=== PATIENT | female | born 1960 | race Caucasian/White ===

== ENCOUNTER → 2019-05-02 14:41 | Outpatient (CLI) | payer OTHER, SELFPAY ==
--- NOTE | 2019-05-02 | DI.MRI.S_ITS ---
PROCEDURE: MR CERVICAL SPINE WO CON INDICATIONS: Spondylosis without myelopathy or radiculopathy TECHNIQUE: Noncontrast sagittal T1 spin echo and T2 fast spin echo, sagittal STIR, foraminal oblique sagittal T2 fast spin echo, and axial gradient echo or T2 fast spin echo through the cervical spine. COMPARISON: [facility] [place], CR, XR CERVICAL SPINE 6+ VIEWS, 05/13/2018, 8:55. FINDINGS: Image quality: Excellent. Alignment and Curvature: There is trace C5-C6 retrolisthesis. There is mild C7-T1 anterolisthesis. There is mild reversal of normal cervical spine curvature from C3-C5. Bone Marrow: Minimal reactive endplate changes adjacent to C4-C5 and C5-C6 discs. Spinal Cord: Visualized spinal cord has normal size and signal. No cerebellar tonsillar herniation. Paraspinous Soft Tissues: No paravertebral masses. Prevertebral soft tissues are normal in thickness. C2-C3: Loss of disc signal. No central stenosis. No neural foraminal narrowing. No neural compression. C3-C4: Loss of disc signal. Mild, diffuse disc bulge. Mild left facet hypertrophy. Mild left uncovertebral joint hypertrophy. Mild narrowing of the central canal. Severe left neural foraminal narrowing with compression of the exiting left C4 nerve root. Right neural foramen is widely patent. C4-C5: Loss of disc signal and slight loss of disc height. Mild diffuse disc bulge. Mild left facet hypertrophy. Mild left uncovertebral joint hypertrophy. Moderate narrowing of the central canal. Mild right and severe left neural foraminal narrowing with compression of the exiting left C5 nerve root. C5-C6: Loss of disc signal and height. Moderate, diffuse disc bulge. Mild bilateral facet hypertrophy. Moderate bilateral uncovertebral joint hypertrophy. Severe narrowing of the central canal with slight compression of the cervical spinal cord. Severe bilateral neural foraminal narrowing with compression of the exiting bilateral C6 nerve roots. C6-C7: Normal appearance. C7-T1: Normal appearance. IMPRESSION: 1. Multilevel degenerative disc disease. 2. Multilevel facet and uncovertebral arthropathy. 3. Severe C5-C6 central canal narrowing. Moderate C4-C5 central canal narrowing. Mild C3-C4 central canal narrowing. 4. Severe bilateral C5-C6 neural foraminal narrowing. Mild right and severe left C4-C5 neural foraminal narrowing. Severe left C3-C4 neural foraminal narrowing. Dictated by: Kaley Dietrich MD, PhD on 05/02/2019 at 16:54 Approved by: Kaley Dietrich MD, PhD on 05/02/2019 at 17:04
== END ==
PROVIDERS: Family Provider Family Medicine; PCP Family Medicine; Visit Provider Internal Medicine
DX: M47.812 Spondylosis without myelopathy or radiculopathy, cervical region (principal); M50.31 Other cervical disc degeneration, high cervical region; M48.02 Spinal stenosis, cervical region
CPT/HCPCS: 72141

== ENCOUNTER → 2020-06-02 09:16 | Outpatient (CLI) | payer OTHER, SELFPAY ==
--- NOTE | 2020-06-02 | DI.ECHO.S_ITS ---
[place] [facility]---------+ [facility] +---------+ : : [address] : : : : [id number] : : : : Phone: [phone]+ Echocardiogram Report + + :Name: FAUSTINO WHIPPLE Study Date: 06/02/2020 Height: 69 in : :[facility] Weight: 166 lb : : Gender: Female BSA: 1.9 m2 : :: 1960 Age: 60 yrs BP: 137/78 mmHg: :Reason For Study: ENCOUNTER FOR GENERAL ADULT MEDICAL : :EXAMINATION : :Ordering Physician: MARTIN, : :LAURI Performed By: Amanda Carrasco : :Referring: LAURI SALAZAR : + + Interpretation Summary Left ventricular systolic function is normal with an estimated ejection fraction of 60 to 65% without any focal wall motion abnormality. Left ventricular size is normal with borderline concentric LVH. Diastolic function is likely normal with probable normal filling pressures. The right ventricle appears normal. Right ventricular systolic pressure cannot be estimated but CVP is likely around 3 mmHg. Both atria are borderline enlarged. The aortic valve appears anatomically normal with mild central aortic regurgitation. There is no other significant valvular abnormality. The ascending aorta is mildly enlarged. Procedure: A two-dimensional transthoracic echocardiogram with color flow and Doppler was performed. The study quality was technically adequate. There is no prior echocardiogram noted for this patient. The patient was in sinus rhythm with heart rates between 65-70 bpm during the exam. Left Ventricle: The left ventricle is normal in size. There is borderline concentric left ventricular hypertrophy. Left ventricular systolic function appears normal without focal wall motion abnormalities. The ejection fraction is estimated to be 60-65%. Diastolic parameters suggest probable normal left ventricular diastolic function and normal filling pressures. Right Ventricle: The right ventricle is normal in size and function. Atria: There is borderline biatrial enlargement. There is no Doppler evidence for an interatrial shunt. Mitral Valve: The mitral valve is normal in structure and function. There is trace mitral regurgitation. Aortic Valve: The aortic valve is trileaflet. The aortic valve opens well. There is no aortic valve stenosis. There is mild aortic regurgitation. Tricuspid Valve: The tricuspid valve is normal in structure and function. There is trace tricuspid regurgitation. Pulmonary artery pressures cannot be estimated because of the lack of a measurable TR jet velocity but the IVC suggests a CVP of around 3 mmHg. Pulmonic Valve: The pulmonic valve is not well visualized. There is no pulmonic valvular regurgitation. There is no other significant valvular heart disease. Great Vessels: The aortic root is normal size. The ascending aorta is mildly enlarged. The IVC is of normal diameter and collapses greater than 50% with a sniff. This suggests a low right atrial pressure of 3 mm Hg. Pericardium/ Pleura There is no pericardial effusion. There is no pleural effusion. MMode/2D Measurements & Calculations LVIDd: 4.3 cm LVOT diam: 2.4 cm LVIDs: 2.6 cm Ao root diam: 3.4 cm FS: 38.5 % asc Aorta Diam: 3.7 cm EPSS: 0.35 cm Ao Arch Diam (Prox Trans): 2.9 cm IVSd: 1.0 cm LVPWd: 1.1 cm LV cisneros. diameter/BSA (cm/m^2): 2.2 LV sys. diameter/BSA (cm/m^2): 1.4 LA A2 area: 24.6 cm2 RA long axis: 5.6 cm LA A4 area: 16.7 cm2 RA area: 18.8 cm2 LA length (vol): 5.4 cm RA vol: 53.5 ml LA vol: 65.2 ml RA : 28.1 ml/m2 LA vol index: 34.2 ml/m2 IVC diam: 1.1 cm RVD1 (basal): 3.5 cm TAPSE: 2.7 cm Doppler Measurements & Calculations Ao V2 max: 139.7 cm/sec LVOT Max Ethan: 98.9 cm/sec Ao V2 mean: 87.0 cm/sec LV V1 max P.9 mmHg Ao max P.8 mmHg LV V1 VTI: 20.2 cm Ao mean P.5 mmHg DUONG(I,D): 3.7 cm2 Ao V2 VTI: 24.2 cm DUONG(V,D): 3.1 cm2 sev ratio: 0.83 DUONG indexed to BSA (cm^2/m^2): 1.9 AI P1/2t: 919.9 msec AI dec slope: 134.5 cm/sec2 MV E max ethan: 59.7 cm/sec PA V2 max: 73.9 cm/sec MV A max ethan: 61.5 cm/sec PA V2 mean: 46.6 cm/sec MV E/A: 0.97 PA mean P.0 mmHg Med Peak E' Ethan: 7.4 cm/sec PA pr(Accel): 22.5 mmHg E/E' med: 8.1 Lat Peak E' Ethan: 8.5 cm/sec E/E' lat: 7.0 E/e' average: 7.5 MV dec time: 0.28 sec SV(THELMA): 89.1 ml Reading Physician:01:31 PM
== END ==
PROVIDERS: Family Provider Family Medicine; PCP Family Medicine; Referring Provider Family Medicine; Visit Provider Orthopaedic Surgery
DX: I35.1 Nonrheumatic aortic (valve) insufficiency (principal); I77.89 Other specified disorders of arteries and arterioles
CPT/HCPCS: 93306

== ENCOUNTER → 2020-09-15 11:41 | Outpatient (CLI) | payer OTHER, SELFPAY ==
--- NOTE | 2020-09-15 | DI.RAD.S_ITS ---
PROCEDURE: XR KUB INDICATIONS: LLQ PAIN TECHNIQUE: One view of the abdomen acquired. COMPARISON: Merged With [facility], , PELVIC COMPLETE, 09/15/2020, 10:54. FINDINGS: Surgical changes and devices: A probable pessary projects in the lower pelvis. Recommend clinical confirmation. Spinal fixation hardware. Bowel: Bowel gas pattern is normal. There is diffuse moderate to large amount of stool Soft tissues: No suspicious abdominal calcifications. Visualized solid organ contours appear normal in size. Bones: No suspicious bony lesions. IMPRESSION: No specific evidence of bowel obstruction seen at this time although if the patient's symptoms do not improve, continued surveillance with abdominal series radiographs could be performed. Moderate to large amount of stool. Dictated by: Raul Hardin M.D. on 09/15/2020 at 13:55 Approved by: Raul Hardin M.D. on 09/15/2020 at 13:58
--- NOTE | 2020-09-15 11:44 | DI.US.S_ITS ---
PROCEDURE: US PELVIC COMPLETE INDICATIONS: Left lower quadrant pain TECHNIQUE: Real-time scanning was performed of the pelvic organs, with image documentation. Additional endovaginal scanning was necessary due to incomplete visualization of the adnexal and endometrial structures by transabdominal scanning. COMPARISON: None. FINDINGS: Uterus: Uterus is normal in size at 6.5 x 2.7 x 4.3 cm. The endometrium measures 3-4 mm in combined thickness. There is right anterior intramural fibroid measuring 0.8 x 0.8 x 0.8 cm. Ovaries: Right ovary measures 2.7 x 1.2 x 1.3 cm. Left ovary measures 2.4 x 1.4 x 1.7 cm. Doppler interrogation demonstrates no specific evidence of ovarian torsion at this time. Other: No pathologic free abdominal or pelvic fluid. IMPRESSION: Small uterine fibroid Otherwise, unremarkable examination as above Dictated by: Raul Hardin M.D. on 09/15/2020 at 14:35 Approved by: Raul Hardin M.D. on 09/15/2020 at 14:37
== END ==
PROVIDERS: Family Provider Family Medicine; PCP Family Medicine; Visit Provider Orthopaedic Surgery
DX: R10.32 Left lower quadrant pain (principal); D25.9 Leiomyoma of uterus, unspecified
CPT/HCPCS: 74018; 76830; 76856

== ENCOUNTER → 2021-01-20 11:23 | Outpatient (CLI) | payer OTHER, SELFPAY ==
--- NOTE | 2021-01-20 | DI.MRI.S_ITS ---
PROCEDURE: MR LUMBAR SPINE WO CON INDICATIONS: Other intervertebral disc degeneration, lumbar reg TECHNIQUE: Noncontrast sagittal T1 spin echo and T2 fast echo, sagittal STIR, axial T1 and T2 fast spin echo through the lumbar spine. In cases with scoliosis, additional coronal T2 fast spin echo may be performed. COMPARISON: None. FINDINGS: Image quality: Excellent. Alignment and Curvature: There is mild L4-L5 anterolisthesis secondary to facet hypertrophy. Bones: Postsurgical changes compatible with L5-S1 TLIF. Mild reactive endplate changes noted adjacent to the L5-S1 disc space. No acute vertebral body compression fractures. Spinal Cord: Conus medullaris terminates at the L1 level. Visualized cord demonstrates normal signal and size. Paraspinous Soft Tissues: No paravertebral masses. 1.7 centimeter left renal cyst. T12-L1: Normal appearance. L1-L2: Normal appearance. L2-L3: Slight loss of disc signal. Minimal, diffuse disc bulge. No central stenosis. No neural foraminal narrowing. No neural compression. L3-L4: Loss of disc signal. Mild, diffuse disc bulge. Moderate to severe bilateral facet hypertrophy. Mild to moderate narrowing of the central canal. Mild to moderate bilateral neural foraminal narrowing. No neural compression. L4-L5: Loss of disc signal. Mild, diffuse disc bulge. Moderate to severe bilateral facet hypertrophy. Mild to moderate narrowing of the central canal. [id number] right and mild left neural foraminal narrowing. No neural compression. Fissure noted in the anterior annulus. L5-S1: Status post fusion. Mild bilateral facet hypertrophy. No central stenosis. Mild left neural foraminal narrowing. No neural compression. IMPRESSION: 1. Status post L5-S1 fusion. 2. Multilevel degenerative disease. 3. Multilevel facet arthropathy. 4. No severe central canal narrowing. 5. No severe neural foraminal narrowing. 6. No neural compression. 7. Grade 1 L4-L5 degenerative spondylolisthesis. Dictated by: Kaley Dietrich MD, PhD on 01/20/2021 at 14:45 Approved by: Kaley Dietrich MD, PhD on 01/20/2021 at 14:49
== END ==
PROVIDERS: Family Provider Family Medicine; PCP Family Medicine; Referring Provider Family Medicine; Visit Provider Family Medicine
DX: M51.36 Other intervertebral disc degeneration, lumbar region (principal); M43.16 Spondylolisthesis, lumbar region; M47.816 Spondylosis without myelopathy or radiculopathy, lumbar region; M47.817 Spondylosis without myelopathy or radiculopathy, lumbosacral region; Z98.1 Arthrodesis status
CPT/HCPCS: 72148

== ENCOUNTER → 2021-02-22 15:46 | Outpatient (CLI) | payer OTHER, SELFPAY ==
--- NOTE | 2021-02-22 | DI.RAD.S_ITS ---
PROCEDURE: XR FOOT LT MIN 3V INDICATIONS: left foot pain TECHNIQUE: 3 views of the foot were acquired. COMPARISON: None. FINDINGS: Bones: No fractures or dislocations. No suspicious bony lesions. Soft tissues: No tibiotalar joint effusion. Achilles tendon appears normal. IMPRESSION: No definite radiographic abnormality. If pain persists with conservative management, consider cross sectional imaging such as CT or MRI for further assessment. Dictated by: Samy Quispe [facility] Interpreted: Jatin Cardona MD on 02/22/2021 at 16:16 Transcribed by: YISEL on 02/22/2021 at 16:17 Approved by: Jatin Cardona M.D. on 02/22/2021 at 17:05
== END ==
PROVIDERS: Family Provider Family Medicine; PCP Family Medicine; Referring Provider Family Medicine; Visit Provider Family Medicine
DX: M25.572 Pain in left ankle and joints of left foot (principal)
CPT/HCPCS: 73630

== ENCOUNTER → 2022-02-24 11:01 | Outpatient (CLI) | payer OTHER, SELFPAY ==
--- NOTE | 2022-02-24 | DI.RAD.S_ITS ---
PROCEDURE: XR KNEE LT 3V INDICATIONS: Pain in left knee TECHNIQUE: 3 views of the knee were acquired. COMPARISON: None. FINDINGS: Bones: Medial joint space narrowing and medial and lateral osteophytes. No fractures or dislocations. No suspicious bony lesions. Soft tissues: No joint effusion. No suspicious soft tissue calcifications. IMPRESSION: Tricompartmental degenerative changes consistent with osteoarthritis. Dictated by: Robbie Escudero M.D. on 02/24/2022 at 13:06 Approved by: Robbie Escudero M.D. on 02/24/2022 at 13:08
== END ==
PROVIDERS: Family Provider Family Medicine; PCP Family Medicine; Referring Provider Family Medicine; Visit Provider Family Medicine
DX: M25.562 Pain in left knee (principal)
CPT/HCPCS: 73562

== ENCOUNTER → 2022-03-27 16:14 | Outpatient (CLI) | payer OTHER, SELFPAY ==
--- NOTE | 2022-03-27 16:19 | DI.MRI.S_ITS ---
PROCEDURE: MR KNEE LT WO CON INDICATIONS: Unilateral primary osteparthritis, left knee TECHNIQUE: Noncontrast sagittal PD fast spin echo and T2 fast spin echo with fat saturation, sagittal 3-D FLASH with fat saturation; coronal T1 spin echo and PD fast spin echo with fat saturation, and axial PD fast spin echo with fat saturation through the knee. COMPARISON: [facility], CR, XR KNEE LT 3V, 02/24/2022, 11:12. FINDINGS: Image quality: Excellent. Menisci: Oblique tear involving posterior horn of medial meniscus extending to inferior articulating surface is seen. Lateral meniscus is intact.. The meniscal root ligaments appear intact. Cruciate ligaments: The anterior and posterior cruciate ligaments appear intact. Medial structures: There is low-grade medial collateral ligament sprain. The posterior oblique ligament, semimembranosus tendon insertions, oblique popliteal ligament, and meniscocapsular junction appear intact. Visualized portions of the pes anserinus tendons appear normal. No abnormal bursal fluid. Lateral structures: The lateral collateral ligament, long and short heads of the biceps femoris tendon appear intact. The popliteus tendon appears normal; the popliteofibular ligament appears intact. Iliotibial band appears normal. Anterior structures: The quadriceps and patellar tendons appear intact. Patellar alignment is normal. No femoral trochlear dysplasia or ventral trochlear prominence. No edema in the infrapatellar fat pad. Bones and cartilage: No bone marrow contusions or fractures. Nonspecific subcortical cystic area involving anterior aspect of medial tibial plateau is seen and likely represent changes related to osteoarthritis. [id number] tricompartmental osteoarthritis and chondromalacia is noted more prominent in medial femoral tibial compartment. Joint space: There is small amount of joint effusion. A popliteal cyst is noted and measures up to 2.4 x 1.8 x 7.3 cm in size and contains thin internal septation. Normal appearing synovial plicae are incidentally noted. IMPRESSION: 1. Oblique tear involving posterior horn of medial meniscus extending to inferior articulating surface. No focal lateral meniscal tear. 2. Cruciate ligaments are intact. Low-grade MCL sprain. 3. [id number] tricompartmental osteoarthritis and chondromalacia more prominent in medial femoral tibial compartment. No fracture or dislocation. Small joint effusion. Septated popliteal cyst as above. Dictated by: Obey Simon M.D. on 03/28/2022 at 8:17 Approved by: Obey Simon M.D. on 03/28/2022 at 8:22
== END ==
PROVIDERS: Family Provider Family Medicine; PCP Family Medicine; Referring Provider Family Medicine; Visit Provider Family Medicine
DX: S83.242A Other tear of medial meniscus, current injury, left knee, initial encounter (principal); S83.412A Sprain of medial collateral ligament of left knee, initial encounter; M94.262 Chondromalacia, left knee; M25.462 Effusion, left knee; M17.12 Unilateral primary osteoarthritis, left knee; M71.22 Synovial cyst of popliteal space [Baker], left knee
CPT/HCPCS: 73721

== ENCOUNTER 2022-05-05 13:00 | Outpatient (RCR) | payer OTHER, SELFPAY ==
--- NOTE | 2022-02-24 16:54 | PT.OIE ---
Current Diagnoses Stiffness of unspecified hip, not elsewhere classified (02/24/22) Muscle weakness (generalized) (02/24/22) Segmental and somatic dysfunction of pelvic region (02/24/22) Fecal smearing (02/24/22) Visit Care Team Role Provider Type Suhail Castellano MD Attending Provider Physician Family Provider Primary Care Provider Referring Provider Specialty: Family Practice Address: [address] [place] [address], [address], [place], [address] Email: Physical Therapy Initial Evaluation PT-OP-A Visit Information Start: 02/23/22 18:11 Freq: Status: Active Protocol: Document 02/24/22 09:47 LRN (Rec: 02/24/22 12:41 LRN [id number]) Out-Patient Physical Therapy Visit Information Visit Information Visit Type Initial Evaluation Visit Start Time 09:51 Visit Stop Time 10:35 Total Visit Minutes 50 Visit Number 1 Evaluation Information Evaluation Date 02/24/22 Precautions Precautions Hardware L5-S1 due to fusion in 2013. PT-OP-B Current Condition Start: 02/23/22 18:11 Freq: Status: Active Protocol: Document 02/24/22 09:47 LRN (Rec: 02/24/22 12:41 LRN [id number]) Current Condition History of Current Condition Onset Date November 2013. Current Complaints Bowel leakage after having BM with no sensation of leakage. History of Current Condition S1 nerve damage. October 2013 two surgeries, had microdiscectomy surgery, and 30 days later did Trans Laminal Interbody Fusion (TLIF ) of L L5-S1 with hardward placed (screws/edmondson). Bowel leakage symptoms started 30 days later. In November had normal BM daily followed by leakage of variable amounts ( Bowel leakage ranges fro mucus to pieces of stool). Pt states sometimes she can feel leakage, most of the time can' t feel. Wears liner and wipes frequently. Factors such as different drinks can make it worse. Worsened by caffeine, alcohol, spicy foods. Pt has not noticed leakage with passing of gas. PMH per intake form: Arthritis, Back/Neck pain, Neuropathy blood pressure, Depression, BARTON's, Prior Treatments and Tests Biofeedback and PF strengthening, but was not able to complete program because she was too busy. Has tried to continue Kegels. Anorectal Manometry 4/5/22 Result: Decreased anal tone w /weak squeeze and mild fatigue of anal sphincter and PF dyssynergia. Report indicates failure to achieve and appropriate increase in rectal pressure with straining, accompanied by a paradoxical simultaneous slight increase in anal pressure. Rectal sensation is normal. Future Testing and Treatments Planned GI Manometry (at ), was told loose sphincter tone. Developmental History Developmental History Has had 2 children, one vaginal one with no PF dysfunction post pregancies . Treatment Goals Patient/Caregiver Goals Pt goal is not to leak poop after 2-5 hrs after having a BM. 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 Current Functional Impairments (Reported) Functional Limitations- ADL's Bowel leakage 3-4 hours after BM. Functional Limitations- Work/School Retired. Functional Limitations- Recreation/ Rides bike 3x/week. Hobbies Ex machine in house Eliptical stair stepper. Does things in yard. Personal Factors Other Personal Factors That May Effect Chronic neck pain, back Therapy/Recovery stiffness from surgeries. [place], managing the property with . PT-OP-C Subjective Start: 02/23/22 18:11 Freq: Status: Active Protocol: Document 02/24/22 09:47 LRN (Rec: 02/24/22 12:41 LRN [id number]) Patient Questionnaires Pelvic Pain and Urgency/Frequency Patient Symptom Scale Pelvic Pain Score 16 OP-PT Pain Assessment Pain Assessment Grid Paper Pain Assessment Grid Completed Yes Comments Pain Comments No Complaints of pain. PT-OP-J Posture/Palpation/Skin Start: 02/23/22 18:11 Freq: Status: Active Protocol: Document 02/24/22 09:47 LRN (Rec: 02/24/22 12:41 LRN [id number]) Posture Evaluation Position Standing Evaluation View All positions Comments Posture Comments Normal head/neck/shoulder/ spine posture. L innominate shifted medially. Palpation Assessment Location Pelvis Palpation Location PSIS & ASIS closer to midline. PSIS tender Palpation Findings Soft Tissue Tightness, Tenderness PT-OP-K Range of Motion Start: 02/23/22 18:11 Freq: Status: Active Protocol: Document 02/24/22 09:47 LRN (Rec: 02/24/22 12:41 [facility] [id number]) Lumbar Spine Range of Motion Lumbar Spine Active Degrees Testing Position Standing Flexion 55 Extension 5 Rotation Left 10 Rotation Right 15 Lateral Flexion Left 5 Lateral Flexion Right 8 Comments FB 55/35 Caused spasm in buttock BB 5/0 Hip Goniometric Range of Motion Hip Right Passive Comments Sitting active hip IR: Decreased IR ROM compared to left. Left Passive Comments Sitting active hip IR: Increased IR ROM compared to right. PT-OP-M Strength Start: 02/23/22 18:11 Freq: Status: Active Protocol: Document 02/24/22 09:47 LRN (Rec: 02/24/22 12:41 [facility] [id number]) Trunk Strength Trunk Manual Muscle Testing Core Stabilization Lacks core stability with MMT of hip flex, Hip Strength Hip Manual Muscle Testing Right Flexion (L2) 4+ Good+ Extension (S1) 2+ Poor+ Abduction 4+ Good+ Adduction 2- Poor- Comments Hip Strength is 5/5 except as indicated above. Left Flexion (L2) 4+ Good+ Extension (S1) 2+ Poor+ Abduction 3 Fair Adduction 2- Poor- External Rotation 4 Good Comments Hip Strength is 5/5 except as indicated above. PT-OP-Q Treatments Start: 02/23/22 18:11 Freq: Status: Active Protocol: Document 02/24/22 09:47 LRN (Rec: 02/24/22 12:41 [facility] [id number]) Self-Care/Home Management Treatment Education Patient Education Home Exercise Program Other Education Discussed results of evaluation, goals, and plan of care (POC). Pt agreeable to goals and POC. Pt educated and I/S in use of Bladder Diary and I/S in tracking for 1 week bowel and bladder function and voiding. Discussed use of 2 different diaries for tracking of bladder. Activities Self-Care/Home Management Activities Issued & reviewed HEP: Tasia ex's and discussed exercise of Quick Flicks PT-OP-T Assessment and Plan Start: 02/23/22 18:11 Freq: Status: Active Protocol: Document 02/24/22 09:47 LRN (Rec: 02/24/22 12:41 [facility] [id number]) Physical Therapy Assessment Rehab Potential Rehabilitation Potential Good Evaluation Complexity Number of Personal Factors/Comorbidities 1-2 Number of Body Systems Impaired 3 Clinical Presentation at Evaluation Stable Impairments Impairments Activity Tolerance,ROM, Strength Goals Three Impairment Decreased core/hip strength Impairment Pt not able to hold core stability with MMT of LE's. Decreased hip strength: Bilaterally: flex: 4+/5, ext 2+/5, AD 2-/5; R AB is 4+/5; L AB 3/5, ER 4/5. Short Term Goal (STG) Pt will improve hip strength in areas of deficit 1/2 to 1 grade. STG Duration 04/12/22 Clearance Center Manager Goal (LTG) Pt will be able to hold her core stable with MMT of LE's. LTG Duration 05/25/22 Two Impairment Decreased anal tone w/weak squeeze and mild fatigue of anal sphincter. Impairment Fecal leakage. Fecal leakage 3-4 hours after a BM. Short Term Goal (STG) Pt will improve anal tone and endurance of anal sphincter contractions. STG Duration 04/12/22 Clearance Center Manager Goal (LTG) Eliminate fecal leakage 2-5 hrs after having a BM. LTG Duration 05/25/22 One Impairment Lacks appropriate self care HEP Short Term Goal (STG) Pt will be educated in techniques of BM voiding to limit straining and paradoxical simultaneous slight increase in anal pressure after voiding. STG Duration 04/12/22 Clearance Center Manager Goal (LTG) Pt will be independent with a self care HEP of LB/hip ROM ex 's and PF/core/hip strengthening exercises. LTG Duration 05/25/22 Assessment Summary Assessment Pt present with results of anorectal manometry indicating decreased anal tone w/weak squeeze and mild fatigue of anal sphincter and PF dyssynergia of slight increase in anal pressure after straining. Rectal sensation was found to be normal. Manual assessment will be performed at next appointment if pt agreeable. Pt demonstrates decreased trunk and hip mobility (flexion caused back/hip ms spasms) and decreased core/hip strength. She has soft tissue tightness on L pelvis. PUF score of 16 shows 75% likelihood of positive potassium sensitivity test, therefore may indicate IC prevalence, although symptoms appear post surgically related. She does demonstrate good posture in standing except the L innominate appears shifted medially. The pt will Physical Therapy Plan Frequency and Duration Frequency of Treatment 1x/Week Plan of Care Start Date 02/24/22 Plan of Care End Date 05/25/22 Therapeutic Interventions Therapeutic Interventions Home Exercise Program,Joint Mobilizations,Manual Therapy, Neuromuscular Re-education, Patient/Caregiver Education, Self-Care/Home Management,Soft Tissue Mobilization,Taping, Therapeutic Activities, Therapeutic Exercises Modalities Cold Pack/Ice Massage,Hot Packs Next Visit Focus/Plan Next Note Type Treatment Note Next Visit Plan Review with pt Bowel/Bladder Diary and recommendations as appropriate. Assess hip PROM and manual assessment of PF posteriorly and at anus if pt agreeable. Review PF strengthening ex ( hips in AB > AD), issue TBand and progress anal sphincter and posterior PF strengthening . EXER: Core and PF (posterior> anterior) strengthening, and Trunk ROM ex's; hip ROM ex's per assessment. MANUAL: STM of and MFR of L posterior pelvis/trunk and areas of restrictions in abdominal region if present. Hold modalities due to hardware in at L5-S1. Ice/MH as needed.
--- NOTE | 2022-03-02 12:29 | PT.OTN ---
Current Diagnoses Stiffness of unspecified hip, not elsewhere classified (03/02/22) Muscle weakness (generalized) (03/02/22) Segmental and somatic dysfunction of pelvic region (03/02/22) Fecal smearing (03/02/22) Physical Therapy Treatment Note PT-OP-A Visit Information Start: 02/23/22 18:11 Freq: Status: Active Protocol: Document 03/02/22 10:37 LRN (Rec: 03/02/22 12:28 LRN [id number]) Out-Patient Physical Therapy Visit Information Visit Information Visit Type Treatment Note Visit Start Time 10:37 Visit Stop Time 11:20 Total Visit Minutes 43 Visit Number 2 Evaluation Information Evaluation Date 02/24/22 Precautions Precautions Hardware L5-S1 due to fusion in 2013. PT-OP-B Current Condition Start: 02/23/22 18:11 Freq: Status: Active Protocol: Document 02/24/22 09:47 LRN (Rec: 02/24/22 12:41 LRN [id number]) Current Condition History of Current Condition Onset Date November 2013. Current Complaints Bowel leakage after having BM with no sensation of leakage. History of Current Condition S1 nerve damage. October 2013 two surgeries, had microdiscectomy surgery, and 30 days later did Trans Laminal Interbody Fusion (TLIF ) of L L5-S1 with hardward placed (screws/edmondson). Bowel leakage symptoms started 30 days later. In November had normal BM daily followed by leakage of variable amounts ( Bowel leakage ranges fro mucus to pieces of stool). Pt states sometimes she can feel leakage, most of the time can' t feel. Wears liner and wipes frequently. Factors such as different drinks can make it worse. Worsened by caffeine, alcohol, spicy foods. Pt has not noticed leakage with passing of gas. PMH per intake form: Arthritis, Back/Neck pain, Neuropathy blood pressure, Depression, BARTON's, Prior Treatments and Tests Biofeedback and PF strengthening, but was not able to complete program because she was too busy. Has tried to continue Kegels. Anorectal Manometry 10/04/21 Result: Decreased anal tone w /weak squeeze and mild fatigue of anal sphincter and PF dyssynergia. Report indicates failure to achieve and appropriate increase in rectal pressure with straining, accompanied by a paradoxical simultaneous slight increase in anal pressure. Rectal sensation is normal. Future Testing and Treatments Planned GI Manometry (at ), was told loose sphincter tone. Developmental History Developmental History Has had 2 children, one vaginal one with no PF dysfunction post pregancies . Treatment Goals Patient/Caregiver Goals Pt goal is not to leak poop after 2-5 hrs after having a BM. 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 Current Functional Impairments (Reported) Functional Limitations- ADL's Bowel leakage 3-4 hours after BM. Functional Limitations- Work/School Retired. Functional Limitations- Recreation/ Rides bike 3x/week. Hobbies Ex machine in house Eliptical stair stepper. Does things in yard. Personal Factors Other Personal Factors That May Effect Chronic neck pain, back Therapy/Recovery stiffness from surgeries. [place] [address], managing the property with . PT-OP-C Subjective Start: 02/23/22 18:11 Freq: Status: Active Protocol: Document 03/02/22 10:37 LRN (Rec: 03/02/22 12:28 LRN [id number]) OP-PT Subjective Patient Comments Patient Comments Pt brings in her Bowel/bladder log, and some of [facility] records. States one night she had some drinks and had more leakage. She is trying to learn to do her Kegels. Uses 1-2 pads per day to catch loose stool and uses toilet paper folds. . PT-OP-J Posture/Palpation/Skin Start: 02/23/22 18:11 Freq: Status: Active Protocol: Document 02/24/22 09:47 LRN (Rec: 02/24/22 12:41 LRN [id number]) Posture Evaluation Position Standing Evaluation View All positions Comments Posture Comments Normal head/neck/shoulder/ spine posture. L innominate shifted medially. Palpation Assessment Location Pelvis Palpation Location PSIS & ASIS closer to midline. PSIS tender Palpation Findings Soft Tissue Tightness, Tenderness PT-OP-K Range of Motion Start: 02/23/22 18:11 Freq: Status: Active Protocol: Document 03/02/22 10:37 LRN (Rec: 03/02/22 12:28 LRN [id number]) Hip Goniometric Range of Motion Hip Right Passive Testing Position Supine Flexion w/Knee Flexed 126 Straight Leg Raise 90 Abduction 50 Internal Rotation 50 External Rotation 65 Left Passive Testing Position Supine Flexion w/Knee Flexed 110 Straight Leg Raise 90 Abduction 55 Internal Rotation 40 External Rotation 55 PT-OP-M Strength Start: 02/23/22 18:11 Freq: Status: Active Protocol: Document 02/24/22 09:47 LRN (Rec: 02/24/22 12:41 LRN [id number]) Trunk Strength Trunk Manual Muscle Testing Core Stabilization Lacks core stability with MMT of hip flex, Hip Strength Hip Manual Muscle Testing Right Flexion (L2) 4+ Good+ Extension (S1) 2+ Poor+ Abduction 4+ Good+ Adduction 2- Poor- Comments Hip Strength is 5/5 except as indicated above. Left Flexion (L2) 4+ Good+ Extension (S1) 2+ Poor+ Abduction 3 Fair Adduction 2- Poor- External Rotation 4 Good Comments Hip Strength is 5/5 except as indicated above. PT-OP-Q Treatments Start: 02/23/22 18:11 Freq: Status: Active Protocol: Document 03/02/22 10:37 LRN (Rec: 03/02/22 12:28 LRN [id number]) Therapeutic Exercises Supine Exercises Kegel-posterior Supine Exercise Name BKFO w/TB around knees Equipment Used Lev 2 TB Reps/Minutes 10x Kegel Supine Exercise Name Kegel Reps/Minutes 2SH, 20x Lateral Hip stretch Supine Exercise Name Lateral Hip stretch Side bilateral Reps/Minutes 2x L, 1x R Piriformis stretch Supine Exercise Name Knee to opp shoulder Side bilateral Reps/Minutes 2x L, 1x R KTC Supine Exercise Name KTC stretch Side bilateral Reps/Minutes 2x L, 1x R Quick Flicks Supine Exercise Name Quick Flicks on bolster and off bolster Reps/Minutes 8' Comments Pt had low tolerance to being on bolster due to LBP Sitting Exercises Hip ER stretch Sitting Exercise Name Fig 4 Side bilateral Reps/Minutes 2x R, 1x L Self-Care/Home Management Treatment Education Other Education Review with pt Bowel/Bladder Diary and discussed at length her diet or lack thereof of fiber and solids appeared to result in runny stools. Recommendations were made to improve fiber and solids and to track fluid intake. Activities Self-Care/Home Management Activities I/S pt in Quick Flick Kegels with use of Lev2 TB for BKFO ex to improve anal sphincter strength. PT-OP-T Assessment and Plan Start: 02/23/22 18:11 Freq: Status: Active Protocol: Document 03/02/22 10:37 LRN (Rec: 03/02/22 12:28 LRN [id number]) Physical Therapy Assessment Goals Three Impairment Decreased core/hip strength Impairment Pt not able to hold core stability with MMT of LE's. Decreased hip strength: Bilaterally: flex: 4+/5, ext 2+/5, AD 2-/5; R AB is 4+/5; L AB 3/5, ER 4/5. Short Term Goal (STG) Pt will improve hip strength in areas of deficit 1/2 to 1 grade. STG Duration 04/12/22 Telephone Station Installer Goal (LTG) Pt will be able to hold her core stable with MMT of LE's. LTG Duration 05/25/22 Two Impairment Decreased anal tone w/weak squeeze and mild fatigue of anal sphincter. Impairment Fecal leakage. Fecal leakage 3-4 hours after a BM. Short Term Goal (STG) Pt will improve anal tone and endurance of anal sphincter contractions. STG Duration 04/12/22 Telephone Station Installer Goal (LTG) Eliminate fecal leakage 2-5 hrs after having a BM. LTG Duration 05/25/22 One Impairment Lacks appropriate self care HEP Short Term Goal (STG) Pt will be educated in techniques of BM voiding to limit straining and paradoxical simultaneous slight increase in anal pressure after voiding. STG Duration 04/12/22 Skilled Nursing Goal (LTG) Pt will be independent with a self care HEP of LB/hip ROM ex 's and PF/core/hip strengthening exercises. 03/02/22: HEP I/S for Kegel & Kegel with BKFO/Lev2 TB. LTG Duration 05/25/22 (03/02/22: Progressed ) Assessment Summary Assessment Pt has decreased L hip mobility with IR and slightly with KTC; R hip mobility decreased with ER & AB. Per Bladder diary review pt has more runny stool due to decreased fiber and solids in her diet. Pt did not track her fluid intake volumes but according to the pt she drinks a lot of fluids. Pt does not notice that she must push when having a BM, and is receptive to modification of diet to decrease runniness of her stools. Extra time taken with ex's to teach proper positioning and max tolerated position. Physical Therapy Plan Frequency and Duration Frequency of Treatment 1x/Week Plan of Care Start Date 02/24/22 Plan of Care End Date 05/25/22 Next Visit Focus/Plan Next Note Type Treatment Note Next Visit Plan Manual assessment of PF posteriorly and at anus if pt agreeable. Review PF strengthening ex ( hips in AB > AD), issue TBand and progress anal sphincter and posterior PF strengthening . EXER: Core and PF (posterior> anterior) strengthening, and Trunk ROM ex's; hip ROM ex's per assessment. MANUAL: STM of and MFR of L posterior pelvis/trunk and areas of restrictions in abdominal region if present. Hold modalities due to hardware in at L5-S1. Ice/MH as needed.
--- NOTE | 2022-04-07 14:54 | PT.OTN ---
Current Diagnoses Stiffness of unspecified hip, not elsewhere classified (04/07/22) Muscle weakness (generalized) (04/07/22) Segmental and somatic dysfunction of pelvic region (04/07/22) Fecal smearing (04/07/22) Physical Therapy Treatment Note PT-OP-A Visit Information Start: 02/23/22 18:11 Freq: Status: Active Protocol: Document 04/07/22 13:54 LRN (Rec: 04/07/22 14:53 LRN [id number]) Out-Patient Physical Therapy Visit Information Visit Information Visit Type Treatment Note Visit Start Time 13:54 Visit Stop Time 14:40 Total Visit Minutes 46 Visit Number 3 Evaluation Information Evaluation Date 02/24/22 Precautions Precautions Hardware L5-S1 due to fusion in 2013. PT-OP-B Current Condition Start: 02/23/22 18:11 Freq: Status: Active Protocol: Document 02/24/22 09:47 LRN (Rec: 02/24/22 12:41 LRN [id number]) Current Condition History of Current Condition Onset Date November 2013. Current Complaints Bowel leakage after having BM with no sensation of leakage. History of Current Condition S1 nerve damage. October 2013 two surgeries, had microdiscectomy surgery, and 30 days later did Trans Laminal Interbody Fusion (TLIF ) of L L5-S1 with hardward placed (screws/edmondson). Bowel leakage symptoms started 30 days later. In November had normal BM daily followed by leakage of variable amounts ( Bowel leakage ranges fro mucus to pieces of stool). Pt states sometimes she can feel leakage, most of the time can' t feel. Wears liner and wipes frequently. Factors such as different drinks can make it worse. Worsened by caffeine, alcohol, spicy foods. Pt has not noticed leakage with passing of gas. PMH per intake form: Arthritis, Back/Neck pain, Neuropathy blood pressure, Depression, BARTON's, Prior Treatments and Tests Biofeedback and PF strengthening, but was not able to complete program because she was too busy. Has tried to continue Kegels. Anorectal Manometry 10/04/21 Result: Decreased anal tone w /weak squeeze and mild fatigue of anal sphincter and PF dyssynergia. Report indicates failure to achieve and appropriate increase in rectal pressure with straining, accompanied by a paradoxical simultaneous slight increase in anal pressure. Rectal sensation is normal. Future Testing and Treatments Planned GI Manometry (at ), was told loose sphincter tone. Developmental History Developmental History Has had 2 children, one vaginal one with no PF dysfunction post pregancies . Treatment Goals Patient/Caregiver Goals Pt goal is not to leak poop after 2-5 hrs after having a BM. 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 Current Functional Impairments (Reported) Functional Limitations- ADL's Bowel leakage 3-4 hours after BM. Functional Limitations- Work/School Retired. Functional Limitations- Recreation/ Rides bike 3x/week. Hobbies Ex machine in house Eliptical stair stepper. Does things in yard. Personal Factors Other Personal Factors That May Effect Chronic neck pain, back Therapy/Recovery stiffness from surgeries. Lives on [place], managing the property with . PT-OP-C Subjective Start: 02/23/22 18:11 Freq: Status: Active Protocol: Document 04/07/22 13:54 LRN (Rec: 04/07/22 14:53 LRN [id number]) OP-PT Subjective Patient Comments Patient Comments Lost paper so didn't do the bowel/bladder log. States she is regular. Same issue daily . Trying to do Kegels. Tries to do exercises in morning. No change with routine (BM 7- 8a, notices leakage during next 3-5 hrs, then no problem until having another BM). Drinks a lot of water. PT-OP-J Posture/Palpation/Skin Start: 02/23/22 18:11 Freq: Status: Active Protocol: Document 02/24/22 09:47 LRN (Rec: 02/24/22 12:41 LRN [id number]) Posture Evaluation Position Standing Evaluation View All positions Comments Posture Comments Normal head/neck/shoulder/ spine posture. L innominate shifted medially. Palpation Assessment Location Pelvis Palpation Location PSIS & ASIS closer to midline. PSIS tender Palpation Findings Soft Tissue Tightness, Tenderness PT-OP-K Range of Motion Start: 02/23/22 18:11 Freq: Status: Active Protocol: Document 03/02/22 10:37 LRN (Rec: 03/02/22 12:28 LRN [id number]) Hip Goniometric Range of Motion Hip Right Passive Testing Position Supine Flexion w/Knee Flexed 126 Straight Leg Raise 90 Abduction 50 Internal Rotation 50 External Rotation 65 Left Passive Testing Position Supine Flexion w/Knee Flexed 110 Straight Leg Raise 90 Abduction 55 Internal Rotation 40 External Rotation 55 PT-OP-M Strength Start: 02/23/22 18:11 Freq: Status: Active Protocol: Document 02/24/22 09:47 LRN (Rec: 02/24/22 12:41 LRN [id number]) Trunk Strength Trunk Manual Muscle Testing Core Stabilization Lacks core stability with MMT of hip flex, Hip Strength Hip Manual Muscle Testing Right Flexion (L2) 4+ Good+ Extension (S1) 2+ Poor+ Abduction 4+ Good+ Adduction 2- Poor- Comments Hip Strength is 5/5 except as indicated above. Left Flexion (L2) 4+ Good+ Extension (S1) 2+ Poor+ Abduction 3 Fair Adduction 2- Poor- External Rotation 4 Good Comments Hip Strength is 5/5 except as indicated above. PT-OP-Q Treatments Start: 02/23/22 18:11 Freq: Status: Active Protocol: Document 04/07/22 13:54 LRN (Rec: 04/07/22 14:53 LRN [id number]) Therapeutic Exercises Supine Exercises Bridge/Kegel Supine Exercise Name Bridge/PF Reps/Minutes 10x Quick, 6x 8SH (3 breaths) Comments Double rest time between contractions Kegel-posterior Supine Exercise Name PF/BKFO - TB around knees Equipment Used Lev 2 TB Reps/Minutes 10x Quick, 3x 8 SH (4 breaths) . Double rest btn contractions Comments Cuing to coordinate contract relax. Lateral Hip stretch Supine Exercise Name Lateral Hip stretch Side bilateral Reps/Minutes 2x L, 1x R (30 SH) Piriformis stretch Supine Exercise Name Knee to opp shoulder Side bilateral Reps/Minutes 2x L, 1x R, (30 SH) KTC Supine Exercise Name KTC stretch Side bilateral Reps/Minutes 2x L, 1x R, (30 SH) Sidelying Exercises Clamshell Sidelying Exercise Name PF/Clamshell Side bilateral Reps/Minutes 6x 8 SH (4 breaths). Double rest btn contractions Director Of Academic Support PF contractions Sidelying Exercise Name Posterior PF contractions Reps/Minutes 9' Comments Cuing for Quick Flicks & Long Holds. Self-Care/Home Management Treatment Education Patient Education Home Exercise Program Activities Self-Care/Home Management Activities Issued & reviewed HEP: Hip stretches (L>R): Piriformis, lateral hip, SKTC. PF strengthening w/: Bridge & Clamshell. PT-OP-T Assessment and Plan Start: 02/23/22 18:11 Freq: Status: Active Protocol: Document 04/07/22 13:54 LRN (Rec: 04/07/22 14:53 LRN [id number]) Physical Therapy Assessment Goals Three Impairment Decreased core/hip strength Impairment Pt not able to hold core stability with MMT of LE's. Decreased hip strength: Bilaterally: flex: 4+/5, ext 2+/5, AD 2-/5; R AB is 4+/5; L AB 3/5, ER 4/5. Short Term Goal (STG) Pt will improve hip strength in areas of deficit 1/2 to 1 grade. STG Duration 04/12/22 Fur Trimming Machine Operator Goal (LTG) Pt will be able to hold her core stable with MMT of LE's. LTG Duration 05/25/22 Two Impairment Decreased anal tone w/weak squeeze and mild fatigue of anal sphincter. Impairment Fecal leakage. Fecal leakage 3-4 hours after a BM. Short Term Goal (STG) Pt will improve anal tone and endurance of anal sphincter contractions. STG Duration 04/12/22 Residential Goal (LTG) Eliminate fecal leakage 2-5 hrs after having a BM. LTG Duration 05/25/22 One Impairment Lacks appropriate self care HEP Short Term Goal (STG) Pt will be educated in techniques of BM voiding to limit straining and paradoxical simultaneous slight increase in anal pressure after voiding. STG Duration 04/12/22 Residential Goal (LTG) Pt will be independent with a self care HEP of LB/hip ROM ex 's and PF/core/hip strengthening exercises. 03/02/22: HEP I/S for Kegel & Kegel with BKFO/Lev2 TB. LTG Duration 05/25/22 (03/02/22: Progressed ) Assessment Summary Assessment Pt with decreased anal tone w/ weak squeeze and mild fatigue of anal sphincter and PF dyssynergia of slight increase in anal pressure after straining per anorectal manometry. Per manual assessment, posterior PF strength is 3/5 except anteriorly is 1/5. Pt had continual R Hamstring ms cramps with bridge exercise; therefore pt demonstrated poor conditioning. Pt showed poor recall of I/S hip stretches; therfore HEP handouts needed. Physical Therapy Plan Frequency and Duration Frequency of Treatment 1x/Week Plan of Care Start Date 02/24/22 Plan of Care End Date 05/25/22 Next Visit Focus/Plan Next Note Type Treatment Note Next Visit Plan EMG Biofeedback assessment. Review PF strengthening & issue HEP: BKFO with TBand resistance & PF/hips in AB > AD strengthening. Issue TBand and progress anal sphincter and posterior PF strengthening . Education: Educate in techniques of BM voiding to limit straining. EXER: Core and PF (posterior> anterior) strengthening, and Trunk ROM ex's; hip ROM ex's per assessment. MANUAL: STM of and MFR of L posterior pelvis/trunk and areas of restrictions in abdominal region if present. Hold modalities due to hardware in at L5-S1. Ice/MH as needed.
--- NOTE | 2022-04-14 13:56 | PT.OTN ---
Current Diagnoses Stiffness of unspecified hip, not elsewhere classified (04/14/22) Muscle weakness (generalized) (04/14/22) Segmental and somatic dysfunction of pelvic region (04/14/22) Fecal smearing (04/14/22) Physical Therapy Treatment Note PT-OP-A Visit Information Start: 02/23/22 18:11 Freq: Status: Active Protocol: Document 04/14/22 12:33 LRN (Rec: 04/14/22 13:55 LRN [id number]) Out-Patient Physical Therapy Visit Information Visit Information Visit Type Treatment Note Visit Start Time 13:00 Visit Stop Time 13:44 Total Visit Minutes 44 Visit Number 4 Evaluation Information Evaluation Date 02/24/22 Precautions Precautions Hardware L5-S1 due to fusion in 2013. PT-OP-B Current Condition Start: 02/23/22 18:11 Freq: Status: Active Protocol: Document 02/24/22 09:47 LRN (Rec: 02/24/22 12:41 LRN [id number]) Current Condition History of Current Condition Onset Date November 2013. Current Complaints Bowel leakage after having BM with no sensation of leakage. History of Current Condition S1 nerve damage. October 2013 two surgeries, had microdiscectomy surgery, and 30 days later did Trans Laminal Interbody Fusion (TLIF ) of L L5-S1 with hardward placed (screws/edmondson). Bowel leakage symptoms started 30 days later. In November had normal BM daily followed by leakage of variable amounts ( Bowel leakage ranges fro mucus to pieces of stool). Pt states sometimes she can feel leakage, most of the time can' t feel. Wears liner and wipes frequently. Factors such as different drinks can make it worse. Worsened by caffeine, alcohol, spicy foods. Pt has not noticed leakage with passing of gas. PMH per intake form: Arthritis, Back/Neck pain, Neuropathy blood pressure, Depression, BARTON's, Prior Treatments and Tests Biofeedback and PF strengthening, but was not able to complete program because she was too busy. Has tried to continue Kegels. Anorectal Manometry 10/04/21 Result: Decreased anal tone w /weak squeeze and mild fatigue of anal sphincter and PF dyssynergia. Report indicates failure to achieve and appropriate increase in rectal pressure with straining, accompanied by a paradoxical simultaneous slight increase in anal pressure. Rectal sensation is normal. Future Testing and Treatments Planned GI Manometry (at ), was told loose sphincter tone. Developmental History Developmental History Has had 2 children, one vaginal one with no PF dysfunction post pregancies . Treatment Goals Patient/Caregiver Goals Pt goal is not to leak poop after 2-5 hrs after having a BM. 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 Current Functional Impairments (Reported) Functional Limitations- ADL's Bowel leakage 3-4 hours after BM. Functional Limitations- Work/School Retired. Functional Limitations- Recreation/ Rides bike 3x/week. Hobbies Ex machine in house Eliptical stair stepper. Does things in yard. Personal Factors Other Personal Factors That May Effect Chronic neck pain, back Therapy/Recovery stiffness from surgeries. [place] [address] [place], managing the property with . PT-OP-C Subjective Start: 02/23/22 18:11 Freq: Status: Active Protocol: Document 04/14/22 12:33 LRN (Rec: 04/14/22 13:55 LRN [id number]) OP-PT Subjective Patient Comments Patient Comments ............. PT-OP-I Pelvic Floor Start: 02/23/22 18:11 Freq: Status: Active Protocol: Document 04/14/22 12:33 LRN (Rec: 04/14/22 13:55 LRN [id number]) Pelvic Floor Assessment SEMG (uV) Baseline 1.5 Quick Contraction 5 10 Second Contraction 13.9 Recruitment Pattern Good Relaxation Good Stability of Hold Fair SEMG Stability of Rest Fair Comments Pelvic Floor Comments Pt uses breath hold and Abdomen. PT-OP-J Posture/Palpation/Skin Start: 02/23/22 18:11 Freq: Status: Active Protocol: Document 02/24/22 09:47 LRN (Rec: 02/24/22 12:41 LRN [id number]) Posture Evaluation Position Standing Evaluation View All positions Comments Posture Comments Normal head/neck/shoulder/ spine posture. L innominate shifted medially. Palpation Assessment Location Pelvis Palpation Location PSIS & ASIS closer to midline. PSIS tender Palpation Findings Soft Tissue Tightness, Tenderness PT-OP-K Range of Motion Start: 02/23/22 18:11 Freq: Status: Active Protocol: Document 03/02/22 10:37 LRN (Rec: 03/02/22 12:28 LRN [id number]) Hip Goniometric Range of Motion Hip Right Passive Testing Position Supine Flexion w/Knee Flexed 126 Straight Leg Raise 90 Abduction 50 Internal Rotation 50 External Rotation 65 Left Passive Testing Position Supine Flexion w/Knee Flexed 110 Straight Leg Raise 90 Abduction 55 Internal Rotation 40 External Rotation 55 PT-OP-M Strength Start: 02/23/22 18:11 Freq: Status: Active Protocol: Document 02/24/22 09:47 LRN (Rec: 02/24/22 12:41 LRN [id number]) Trunk Strength Trunk Manual Muscle Testing Core Stabilization Lacks core stability with MMT of hip flex, Hip Strength Hip Manual Muscle Testing Right Flexion (L2) 4+ Good+ Extension (S1) 2+ Poor+ Abduction 4+ Good+ Adduction 2- Poor- Comments Hip Strength is 5/5 except as indicated above. Left Flexion (L2) 4+ Good+ Extension (S1) 2+ Poor+ Abduction 3 Fair Adduction 2- Poor- External Rotation 4 Good Comments Hip Strength is 5/5 except as indicated above. PT-OP-Q Treatments Start: 02/23/22 18:11 Freq: Status: Active Protocol: Document 04/14/22 12:33 LRN (Rec: 04/14/22 13:55 LRN [id number]) Therapeutic Exercises Supine Exercises PF Long Holds Supine Exercise Name PF Long Holds w/vaginal electrode Equipment Used With and without vaginal electrode Quick Flicks Supine Exercise Name Quick Flicks w/vaginal electrode Equipment Used With and without vaginal electrode Comments Extra time taken for EMG set up. PT-OP-T Assessment and Plan Start: 02/23/22 18:11 Freq: Status: Active Protocol: Document 04/14/22 12:33 LRN (Rec: 04/14/22 13:55 LRN [id number]) Physical Therapy Assessment Goals Three Impairment Decreased core/hip strength Impairment Pt not able to hold core stability with MMT of LE's. Decreased hip strength: Bilaterally: flex: 4+/5, ext 2+/5, AD 2-/5; R AB is 4+/5; L AB 3/5, ER 4/5. Short Term Goal (STG) Pt will improve hip strength in areas of deficit 1/2 to 1 grade. STG Duration 04/12/22 Director Federal Goal (LTG) Pt will be able to hold her core stable with MMT of LE's. LTG Duration 05/25/22 Two Impairment Decreased anal tone w/weak squeeze and mild fatigue of anal sphincter. Impairment Fecal leakage. Fecal leakage 3-4 hours after a BM. Short Term Goal (STG) Pt will improve anal tone and endurance of anal sphincter contractions. STG Duration 04/12/22 Alf Goal (LTG) Eliminate fecal leakage 2-5 hrs after having a BM. LTG Duration 05/25/22 One Impairment Lacks appropriate self care HEP Short Term Goal (STG) Pt will be educated in techniques of BM voiding to limit straining and paradoxical simultaneous slight increase in anal pressure after voiding. STG Duration 04/12/22 Alf Goal (LTG) Pt will be independent with a self care HEP of LB/hip ROM ex 's and PF/core/hip strengthening exercises. 03/02/22: HEP I/S for Kegel & Kegel with BKFO/Lev2 TB. LTG Duration 05/25/22 (03/02/22: Progressed ) Assessment Summary Assessment Pt with hx of decreased anal tone w/weak squeeze and mild fatigue of anal sphincter and PF dyssynergia of slight increase in anal pressure after anal straining. Extra time was needed to initiate PF program; therefore pt practiced PF strengthening in isolation of substitute muscles. Pt has difficulty isolating her PF contractions from substitue muscles ( primarily diaphragm and abdominal ms). Quick flicks 5 reps before decrease strength although pt able to rebound with fairly good strength afterwards. Long holds show weakness with ability to hold contraction 2-3 secs only. Strength overall is fair with avg work hold of 13.9 uV's long hold and 13.2 uV's Quick flicks. Physical Therapy Plan Frequency and Duration Frequency of Treatment 1x/Week Plan of Care Start Date 02/24/22 Plan of Care End Date 05/25/22 Next Visit Focus/Plan Next Note Type Treatment Note Next Visit Plan PF anal strengthening with EMG biofeedback: Add bridging, and hip ER with PF strengthening. Might try anal electrode for EStim. Review PF strengthening & issue HEP: BKFO with TBand resistance & PF/hips in AB > AD strengthening. Issue TBand and progress anal sphincter and posterior PF strengthening . Education: Educate in techniques of BM voiding to limit straining. EXER: Core and PF (posterior> anterior) strengthening, and Trunk ROM ex's; hip ROM ex's per assessment. MANUAL: STM of and MFR of L posterior pelvis/trunk and areas of restrictions in abdominal region if present. Hold modalities due to hardware in at L5-S1. Ice/MH as needed.
--- NOTE | 2022-05-05 16:34 | PT.OTN ---
Current Diagnoses Stiffness of unspecified hip, not elsewhere classified (05/05/22) Muscle weakness (generalized) (05/05/22) Segmental and somatic dysfunction of pelvic region (05/05/22) Fecal smearing (05/05/22) Physical Therapy Treatment Note PT-OP-A Visit Information Start: 02/23/22 18:11 Freq: Status: Active Protocol: Document 05/05/22 13:05 LRN (Rec: 05/05/22 13:45 LRN [id number]) Out-Patient Physical Therapy Visit Information Visit Information Visit Type Treatment Note Visit Start Time 13:05 Visit Stop Time 13:44 Total Visit Minutes 41 Visit Number 5 Evaluation Information Evaluation Date 02/24/22 Precautions Precautions Hardware L5-S1 due to fusion in 2013. PT-OP-B Current Condition Start: 02/23/22 18:11 Freq: Status: Active Protocol: Document 02/24/22 09:47 LRN (Rec: 02/24/22 12:41 LRN [id number]) Current Condition History of Current Condition Onset Date November 2013. Current Complaints Bowel leakage after having BM with no sensation of leakage. History of Current Condition S1 nerve damage. October 2013 two surgeries, had microdiscectomy surgery, and 30 days later did Trans Laminal Interbody Fusion (TLIF ) of L L5-S1 with hardward placed (screws/edmondson). Bowel leakage symptoms started 30 days later. In November had normal BM daily followed by leakage of variable amounts ( Bowel leakage ranges fro mucus to pieces of stool). Pt states sometimes she can feel leakage, most of the time can' t feel. Wears liner and wipes frequently. Factors such as different drinks can make it worse. Worsened by caffeine, alcohol, spicy foods. Pt has not noticed leakage with passing of gas. PMH per intake form: Arthritis, Back/Neck pain, Neuropathy blood pressure, Depression, BARTON's, Prior Treatments and Tests Biofeedback and PF strengthening, but was not able to complete program because she was too busy. Has tried to continue Kegels. Anorectal Manometry 10/04/21 Result: Decreased anal tone w /weak squeeze and mild fatigue of anal sphincter and PF dyssynergia. Report indicates failure to achieve and appropriate increase in rectal pressure with straining, accompanied by a paradoxical simultaneous slight increase in anal pressure. Rectal sensation is normal. Future Testing and Treatments Planned GI Manometry (at ), was told loose sphincter tone. Developmental History Developmental History Has had 2 children, one vaginal one with no PF dysfunction post pregancies . Treatment Goals Patient/Caregiver Goals Pt goal is not to leak poop after 2-5 hrs after having a BM. 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 Current Functional Impairments (Reported) Functional Limitations- ADL's Bowel leakage 3-4 hours after BM. Functional Limitations- Work/School Retired. Functional Limitations- Recreation/ Rides bike 3x/week. Hobbies Ex machine in house Eliptical stair stepper. Does things in yard. Personal Factors Other Personal Factors That May Effect Chronic neck pain, back Therapy/Recovery stiffness from surgeries. Lives on [address], managing the property with . PT-OP-C Subjective Start: 02/23/22 18:11 Freq: Status: Active Protocol: Document 05/05/22 13:05 LRN (Rec: 05/05/22 13:45 LRN [id number]) OP-PT Subjective Patient Comments Patient Comments Doing exercises. No changes. PT-OP-I Pelvic Floor Start: 02/23/22 18:11 Freq: Status: Active Protocol: Document 05/05/22 13:05 LRN (Rec: 05/05/22 13:45 LRN [id number]) Pelvic Floor Assessment SEMG (uV) Baseline 3.2 Quick Contraction 12.5 10 Second Contraction 15.4 Recruitment Pattern Good Relaxation Good Stability of Hold Fair SEMG Stability of Rest Good Comments Pelvic Floor Comments Pt used vaginal electrode in rectum to get values taken today. Long Hold (10 rep): Avg Work 15.4 uV, Avg Rest 3.4 uV. Long hold (20 rep): Avg Work 14.8 uV, Avg Rest 3.5 uV. PT-OP-J Posture/Palpation/Skin Start: 02/23/22 18:11 Freq: Status: Active Protocol: Document 02/24/22 09:47 LRN (Rec: 02/24/22 12:41 LRN [id number]) Posture Evaluation Position Standing Evaluation View All positions Comments Posture Comments Normal head/neck/shoulder/ spine posture. L innominate shifted medially. Palpation Assessment Location Pelvis Palpation Location PSIS & ASIS closer to midline. PSIS tender Palpation Findings Soft Tissue Tightness, Tenderness PT-OP-K Range of Motion Start: 02/23/22 18:11 Freq: Status: Active Protocol: Document 03/02/22 10:37 LRN (Rec: 03/02/22 12:28 LRN [id number]) Hip Goniometric Range of Motion Hip Right Passive Testing Position Supine Flexion w/Knee Flexed 126 Straight Leg Raise 90 Abduction 50 Internal Rotation 50 External Rotation 65 Left Passive Testing Position Supine Flexion w/Knee Flexed 110 Straight Leg Raise 90 Abduction 55 Internal Rotation 40 External Rotation 55 PT-OP-M Strength Start: 02/23/22 18:11 Freq: Status: Active Protocol: Document 02/24/22 09:47 LRN (Rec: 02/24/22 12:41 LRN [id number]) Trunk Strength Trunk Manual Muscle Testing Core Stabilization Lacks core stability with MMT of hip flex, Hip Strength Hip Manual Muscle Testing Right Flexion (L2) 4+ Good+ Extension (S1) 2+ Poor+ Abduction 4+ Good+ Adduction 2- Poor- Comments Hip Strength is 5/5 except as indicated above. Left Flexion (L2) 4+ Good+ Extension (S1) 2+ Poor+ Abduction 3 Fair Adduction 2- Poor- External Rotation 4 Good Comments Hip Strength is 5/5 except as indicated above. PT-OP-Q Treatments Start: 02/23/22 18:11 Freq: Status: Active Protocol: Document 05/05/22 13:05 LRN (Rec: 05/05/22 13:45 LRN [id number]) Therapeutic Exercises Supine Exercises PF Long Holds Supine Exercise Name PF Long Holds w/vaginal electrode Equipment Used With vaginal electrode Reps/Minutes 10sH x 20 Quick Flicks Supine Exercise Name Quick Flicks w/vaginal electrode Equipment Used With vaginal electrode Reps/Minutes 2 SH x 20 Comments Extra time taken for EMG set up. Neuro Re-Education Treatment Movement Re-Education Movement Re-education Activities Pt used vaginal electrode for Stim of PF after electrode had been placed in rectum through misunderstanding. Pt had cleaned electrode to her satisfaction. Estim to PF with intensity of 12-13, 10 sec on:10 sec off for pt awareness of PF contraction. PT-OP-T Assessment and Plan Start: 02/23/22 18:11 Freq: Status: Active Protocol: Document 05/05/22 13:05 LRN (Rec: 05/05/22 13:45 LRN [id number]) Physical Therapy Assessment Goals Three Impairment Decreased core/hip strength Impairment Pt not able to hold core stability with MMT of LE's. Decreased hip strength: Bilaterally: flex: 4+/5, ext 2+/5, AD 2-/5; R AB is 4+/5; L AB 3/5, ER 4/5. Short Term Goal (STG) Pt will improve hip strength in areas of deficit 1/2 to 1 grade. STG Duration 04/12/22 Skilled Nursing Goal (LTG) Pt will be able to hold her core stable with MMT of LE's. LTG Duration 05/25/22 Two Impairment Decreased anal tone w/weak squeeze and mild fatigue of anal sphincter. Impairment Fecal leakage. Fecal leakage 3-4 hours after a BM. Short Term Goal (STG) Pt will improve anal tone and endurance of anal sphincter contractions. STG Duration 04/12/22 Tromper Goal (LTG) Eliminate fecal leakage 2-5 hrs after having a BM. LTG Duration 05/25/22 One Impairment Lacks appropriate self care HEP Short Term Goal (STG) Pt will be educated in techniques of BM voiding to limit straining and paradoxical simultaneous slight increase in anal pressure after voiding. STG Duration 04/12/22 Skilled Nursing Goal (LTG) Pt will be independent with a self care HEP of LB/hip ROM ex 's and PF/core/hip strengthening exercises. 03/02/22: HEP I/S for Kegel & Kegel with BKFO/Lev2 TB. LTG Duration 05/25/22 (03/02/22: Progressed ) Assessment Summary Assessment Pt Rectal strength as noted with vaginal electrode showed resting tone of 3.2 uV. 10 reps quick flicks avg work 12. 5 uV, avg rest 4.5 uV. 10 reps Long Holds Avg Work 15.4 uV, Avg Rest 3.4 uV's. Pt had improved awareness of PF contraction after PF stim. Pt may need rectal stim for awareness and education training in proper rectal contractions. Physical Therapy Plan Frequency and Duration Frequency of Treatment 1x/Week Plan of Care Start Date 02/24/22 Plan of Care End Date 05/25/22 Next Visit Focus/Plan Next Note Type Treatment Note Next Visit Plan Assess hip strength in areas of weakness. Education: Educate in techniques of BM voiding to limit straining. PF anal strengthening with EMG biofeedback: Add bridging, and hip ER with PF strengthening. Might try anal electrode for EStim. Review PF strengthening & issue HEP: BKFO with TBand resistance & PF/hips in AB > AD strengthening. Issue TBand and progress anal sphincter and posterior PF strengthening . EXER: Core and PF (posterior> anterior) strengthening, and Trunk ROM ex's; hip ROM ex's per assessment. MANUAL: STM of and MFR of L posterior pelvis/trunk and areas of restrictions in abdominal region if present. Hold modalities (LB Estim) due to hardware in at L5-S1. Ice /MH as needed.
--- NOTE | 2022-06-06 12:32 | PT.OPDS ---
Current Diagnoses Stiffness of unspecified hip, not elsewhere classified (05/05/22) Muscle weakness (generalized) (05/05/22) Segmental and somatic dysfunction of pelvic region (05/05/22) Fecal smearing (05/05/22) Visit Care Team Role Provider Type Suhail Castellano MD Attending Provider Physician Family Provider Primary Care Provider Referring Provider Specialty: Family Practice Address: [address] [place] [address], [address], [place], [address] Email: Visit Number Visit Number 5 Discharge Summary PT-OP-B Current Condition Start: 02/23/22 18:11 Freq: Status: Active Protocol: Document 02/24/22 09:47 LRN (Rec: 02/24/22 12:41 LRN [id number]) Current Condition History of Current Condition Onset Date November 2013. Current Complaints Bowel leakage after having BM with no sensation of leakage. History of Current Condition S1 nerve damage. October 2013 two surgeries, had microdiscectomy surgery, and 30 days later did Trans Laminal Interbody Fusion (TLIF ) of L L5-S1 with hardward placed (screws/edmondson). Bowel leakage symptoms started 30 days later. In November had normal BM daily followed by leakage of variable amounts ( Bowel leakage ranges fro mucus to pieces of stool). Pt states sometimes she can feel leakage, most of the time can' t feel. Wears liner and wipes frequently. Factors such as different drinks can make it worse. Worsened by caffeine, alcohol, spicy foods. Pt has not noticed leakage with passing of gas. PMH per intake form: Arthritis, Back/Neck pain, Neuropathy blood pressure, Depression, BARTON's, Prior Treatments and Tests Biofeedback and PF strengthening, but was not able to complete program because she was too busy. Has tried to continue Kegels. Anorectal Manometry 10/04/21 Result: Decreased anal tone w /weak squeeze and mild fatigue of anal sphincter and PF dyssynergia. Report indicates failure to achieve and appropriate increase in rectal pressure with straining, accompanied by a paradoxical simultaneous slight increase in anal pressure. Rectal sensation is normal. Future Testing and Treatments Planned GI Manometry (at ), was told loose sphincter tone. Developmental History Developmental History Has had 2 children, one vaginal one with no PF dysfunction post pregancies . Treatment Goals Patient/Caregiver Goals Pt goal is not to leak poop after 2-5 hrs after having a BM. 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 Current Functional Impairments (Reported) Functional Limitations- ADL's Bowel leakage 3-4 hours after BM. Functional Limitations- Work/School Retired. Functional Limitations- Recreation/ Rides bike 3x/week. Hobbies Ex machine in house Eliptical stair stepper. Does things in yard. Personal Factors Other Personal Factors That May Effect Chronic neck pain, back Therapy/Recovery stiffness from surgeries. [place], managing the property with . PT-OP-C Subjective Start: 02/23/22 18:11 Freq: Status: Active Protocol: Document 05/05/22 13:05 LRN (Rec: 05/05/22 13:45 LRN [id number]) OP-PT Subjective Patient Comments Patient Comments Doing exercises. No changes. PT-OP-I Pelvic Floor Start: 02/23/22 18:11 Freq: Status: Active Protocol: Document 05/05/22 13:05 LRN (Rec: 05/05/22 13:45 LRN [id number]) Pelvic Floor Assessment SEMG (uV) Baseline 3.2 Quick Contraction 12.5 10 Second Contraction 15.4 Recruitment Pattern Good Relaxation Good Stability of Hold Fair SEMG Stability of Rest Good Comments Pelvic Floor Comments Pt used vaginal electrode in rectum to get values taken today. Long Hold (10 rep): Avg Work 15.4 uV, Avg Rest 3.4 uV. Long hold (20 rep): Avg Work 14.8 uV, Avg Rest 3.5 uV. PT-OP-J Posture/Palpation/Skin Start: 02/23/22 18:11 Freq: Status: Active Protocol: Document 02/24/22 09:47 LRN (Rec: 02/24/22 12:41 LRN [id number]) Posture Evaluation Position Standing Evaluation View All positions Comments Posture Comments Normal head/neck/shoulder/ spine posture. L innominate shifted medially. Palpation Assessment Location Pelvis Palpation Location PSIS & ASIS closer to midline. PSIS tender Palpation Findings Soft Tissue Tightness, Tenderness PT-OP-K Range of Motion Start: 02/23/22 18:11 Freq: Status: Active Protocol: Document 03/02/22 10:37 LRN (Rec: 03/02/22 12:28 LRN [id number]) Hip Goniometric Range of Motion Hip Right Passive Testing Position Supine Flexion w/Knee Flexed 126 Straight Leg Raise 90 Abduction 50 Internal Rotation 50 External Rotation 65 Left Passive Testing Position Supine Flexion w/Knee Flexed 110 Straight Leg Raise 90 Abduction 55 Internal Rotation 40 External Rotation 55 PT-OP-M Strength Start: 02/23/22 18:11 Freq: Status: Active Protocol: Document 02/24/22 09:47 LRN (Rec: 02/24/22 12:41 LRN [id number]) Trunk Strength Trunk Manual Muscle Testing Core Stabilization Lacks core stability with MMT of hip flex, Hip Strength Hip Manual Muscle Testing Right Flexion (L2) 4+ Good+ Extension (S1) 2+ Poor+ Abduction 4+ Good+ Adduction 2- Poor- Comments Hip Strength is 5/5 except as indicated above. Left Flexion (L2) 4+ Good+ Extension (S1) 2+ Poor+ Abduction 3 Fair Adduction 2- Poor- External Rotation 4 Good Comments Hip Strength is 5/5 except as indicated above. PT-OP-T Assessment and Plan Start: 02/23/22 18:11 Freq: Status: Active Protocol: Document 06/06/22 12:27 LRN (Rec: 06/06/22 12:32 LRN [id number]) Physical Therapy Assessment Goals Three Impairment Decreased core/hip strength Impairment Pt not able to hold core stability with MMT of LE's. Decreased hip strength: Bilaterally: flex: 4+/5, ext 2+/5, AD 2-/5; R AB is 4+/5; L AB 3/5, ER 4/5. Short Term Goal (STG) Pt will improve hip strength in areas of deficit 1/2 to 1 grade. STG Duration 04/12/22 Pt not available for final assessment. Retirement Goal (LTG) Pt will be able to hold her core stable with MMT of LE's. LTG Duration 05/25/22 Pt not available for final assessment. Two Impairment Decreased anal tone w/weak squeeze and mild fatigue of anal sphincter. Impairment Fecal leakage. Fecal leakage 3-4 hours after a BM. Short Term Goal (STG) Pt will improve anal tone and endurance of anal sphincter contractions. STG Duration 04/12/22 Pt not available for final assessment. Shoe Salesman Goal (LTG) Eliminate fecal leakage 2-5 hrs after having a BM. LTG Duration 05/25/22 Pt not available for final assessment. One Impairment Lacks appropriate self care HEP Short Term Goal (STG) Pt will be educated in techniques of BM voiding to limit straining and paradoxical simultaneous slight increase in anal pressure after voiding. STG Duration 04/12/22 Pt not available for final assessment. Shoe Salesman Goal (LTG) Pt will be independent with a self care HEP of LB/hip ROM ex 's and PF/core/hip strengthening exercises. 03/02/22: HEP I/S for Kegel & Kegel with BKFO/Lev2 TB. LTG Duration 05/25/22 (03/02/22: Progressed ) Assessment Summary Assessment Pt was last seen 05/05/22. Pt had planned on being gone all March and on 05/11/22 pt called to cancel all remaining appts reporting no longer needing physical therapy and requested DC from PT; therefore pt is being discharged at her request. Pt was not available for final assessment towards goals. Physical Therapy Plan Discharge Physical Therapy Discharge Reasons Patient Request Discharge Comments Thank you for your referral.
== END 2022-06-07 16:52 | disposition home or self-care (01) ==
LOC: PHYS 13:00
PROVIDERS: Family Provider Family Medicine; PCP Family Medicine; Referring Provider Family Medicine; Visit Provider Family Medicine
DX: M99.05 Segmental and somatic dysfunction of pelvic region (principal); M62.81 Muscle weakness (generalized); M25.659 Stiffness of unspecified hip, not elsewhere classified; R15.1 Fecal smearing
CPT/HCPCS: 97110; 97161; 97535

== ENCOUNTER → 2023-05-03 13:32 | Outpatient (CLI) | payer OTHER, SELFPAY ==
--- NOTE | 2023-05-03 | DI.RAD.S_ITS ---
PROCEDURE: XR HAND RT MIN 3V INDICATIONS: Fall, Rt hand pain TECHNIQUE: 3 views of the hand(s) acquired. COMPARISON: [facility], CR, XR WRIST RT MIN 3V, 05/03/2023, 13:41. FINDINGS: Bones: Triquetral fracture fragment at the wrist. No fractures or dislocations involving the hand. Carpal bones are normally aligned. No suspicious bony lesions. Soft tissues: No suspicious soft tissue calcifications. IMPRESSION: Dorsal triquetral fracture at the wrist. No fracture or dislocation involving the hand. Dictated by: Chepe Almodovar M.D. on 05/03/2023 at 18:04 Approved by: Chepe Almodovar M.D. on 05/03/2023 at 18:07
--- NOTE | 2023-05-03 13:36 | DI.RAD.S_ITS ---
PROCEDURE: XR WRIST RT MIN 3V INDICATIONS: RIGHT WRIST PAIN TECHNIQUE: 4 views of the wrist were acquired. COMPARISON: None. FINDINGS: Bones: Triquetral fracture seen on lateral view. No other fractures or dislocations. No suspicious bony lesions. Scaphoid view: Intact Soft tissues: No suspicious soft tissue calcifications. IMPRESSION: Dorsal triquetral fracture. If clinical suspicion and/or symptoms persist, further assessment with repeat plain films, or advanced imaging (e.g., CT, MRI, or bone scan) may be helpful for further assessment. Dictated by: Chepe Almodovar M.D. on 05/03/2023 at 18:02 Approved by: Chepe Almodovar M.D. on 05/03/2023 at 18:04
== END ==
PROVIDERS: PCP Family Medicine; Referring Provider Family Medicine; Visit Provider Family Medicine
DX: S62.111A Displaced fracture of triquetrum [cuneiform] bone, right wrist, initial encounter for closed fracture (principal); M25.531 Pain in right wrist; W19.XXXA Unspecified fall, initial encounter
CPT/HCPCS: 73110; 73130

== ENCOUNTER → 2023-05-10 10:54 | Outpatient (CLI) | payer OTHER, SELFPAY ==
--- NOTE | 2023-05-10 | DI.MRI.S_ITS ---
PROCEDURE: MR ANKLE RT WO CON INDICATIONS: OSTEOCHONDRAL TALAR DOME LESION/RIGHT ANKLE PAIN TECHNIQUE: Noncontrast sagittal T1 spin echo and T2 fast spin echo with fat saturation, axial proton density fast spin echo and T2 fast spin echo with fat saturation, coronal T1 spin echo and T2 fast spin echo with fat saturation through the ankle/hindfoot. COMPARISON: [facility], CR, XR ANKLE 3 VIEWS WEIGHT BEARING RIGHT, 04/12/2023, 13:51. FINDINGS: Image quality: Excellent. MR findings shows marked thickening with some increased signal within the Achilles tendon consistent with severe tendinopathy. There is also mild inflammation in the adjacent peritenon Remainder of the ankle ligaments and tendons appear intact. There is a moderate-sized osteochondral defect involving the lateral talar dome. There is a small ankle joint effusion and small effusion in the subtalar joint. No other significant degenerative changes are seen. Marrow signal visualized bones is otherwise normal. Musculature appears within normal limits. No loculated fluid collections or soft tissue masses are seen. IMPRESSION: 1. Moderate-sized osteochondral defect involving the lateral talar dome. 2. Severe thickening of the Achilles tendon with mild increased intrasubstance signal consistent with severe tendinopathy. 3. Mild increased signal within the peritenon consistent with acute inflammation. 4. Small ankle joint effusion. 5. Small effusion in the subtalar joint. Dictated by: Suhail Luna M.D. on 05/10/2023 at 16:48 Approved by: Suhail Luna M.D. on 05/10/2023 at 16:55
== END ==
PROVIDERS: PCP Family Medicine; Referring Provider Podiatrist; Visit Provider Podiatrist
DX: S93.491S Sprain of other ligament of right ankle, sequela (principal); M89.9 Disorder of bone, unspecified; M94.9 Disorder of cartilage, unspecified; M25.471 Effusion, right ankle
CPT/HCPCS: 73721

== ENCOUNTER → 2023-08-14 | Outpatient (CLI) | payer OTHER, SELFPAY ==
--- NOTE | 2023-08-14 | DI.MRI.S_ITS ---
BREAST MRI OF BOTH BREASTS: 08/14/2023 CLINICAL: High risk screening. PROCEDURE: MR BREAST BI WO/W CON INDICATIONS: PERSONAL RISK TECHNIQUE: The patient was placed prone in a dedicated breast imaging coil. Precontrast axial STIR and 3D FLASH without fat saturation sequences were obtained. Both before and after bolus injection of contrast, sequential 1-minute axial 3D FLASH with fat saturation sequences for 3 time points, with subtraction images and maximum intensity projections (MIP's) generated. Delayed sagittal FLASH images with fat saturation were also obtained. CONTRAST: 20 cc ProHance IV contrast. Computer-aided detection, including computer algorithm analysis of MRI image data for lesion detection and characterization, pharmacokinetic analysis, with further physician review for interpretation, was performed. COMPARISON: Outside Facility, RG, MRI BREAST BILATERAL W / WO CONTRAST, 08/11/2016, 11:03. Outside Facility, MG, MM SCREENING MAMMO BI, 07/19/2016, 15:22. FINDINGS: Image quality: Excellent. There is mild background parenchymal enhancement. Right breast: No mass or suspicious enhancement. Retropectoral silicone implant is intact. Left breast: No mass or suspicious enhancement. Retropectoral silicone implant. No extracapsular rupture. Possible left implant keyhole sign, (2/40), prior MRI demonstrated multiple keyhole signs within the left implant. Miscellaneous: Somewhat shotty appearing axillary lymph nodes. These are decreased compared to prior MRI from 2017. IMPRESSION: BENIGN 1. No mass or suspicious enhancement. 2. No extracapsular implant rupture demonstrated. Possible left breast intracapsular implant rupture. 3. Somewhat shotty appearing axillary lymph nodes which are decreased compared to 2017. BIRADS 2 Recommend continue breast screening with MRI and mammogram. COMMENT: The imaging literature indicates that a negative contrast breast MRI examination has a high sensitivity and a moderate specificity for detecting and excluding invasive carcinomas to a detection threshold of 3-5 mm; nonetheless, appropriate clinical and mammographic follow-up are recommended. MRI is not sensitive for detecting DCIS (ductal carcinoma in situ) and may not detect large invasive neoplasms that show only minimal enhancement such as mucinous carcinoma. If there are suspicious calcifications or clinically worrisome palpable masses, then biopsy should still be considered. Invasive neoplasms can be hidden by co-existent and benign enhancement caused by mastitis, hormone therapy effects, radiation therapy, , and recent biopsy or surgery. False positive examinations can occur in a number of circumstances, including breasts that have recently been subject to invasive procedures and those that contain atypical ductal hyperplasia, hormonally stimulated glandular tissue, fat necrosis, or radial scars. Dictated by: Héctor Jackson M.D. on 08/27/2023 at 16:04 This exam was interpreted at Station ID: [id number]. Electronically Signed By: Héctor Jackson M.D. slc/:08/27/2023 16:23:40 letter sent: Normal Exam ACR BI-RADS Category 2: Benign Finding(s) 3342F
== END ==
LOC: MRI 10:23
PROVIDERS: PCP Family Medicine; Referring Provider Nurse Practitioner; Visit Provider Nurse Practitioner
DX: Z12.39 Encounter for other screening for malignant neoplasm of breast (principal); Z91.89 Other specified personal risk factors, not elsewhere classified; Z98.82 Breast implant status
CPT/HCPCS: 77049; A9579

== ENCOUNTER → 2024-10-10 10:46 | Outpatient (CLI) | payer OTHER, SELFPAY ==
--- NOTE | 2024-10-10 10:48 | DI.MRI.S_ITS ---
PROCEDURE: MR LUMBAR SPINE WO CON INDICATIONS: dorsalgia TECHNIQUE: Noncontrast sagittal T1 spin echo and T2 fast echo, sagittal STIR, and T2 fast spin echo through the lumbar spine. In cases with scoliosis, additional coronal T2 fast spin echo may be performed. COMPARISON: [facility], MR, MR LUMBAR SPINE WO CON, 01/20/2021, 11:34. FINDINGS: Image quality: Excellent. Alignment and Curvature: There is 6 mm anterolisthesis of L4 on L5. 2 mm anterolisthesis of L3 on L4 is seen. Bone Marrow: There is prior posterior fusion at L5-S1 level with intervertebral spacer and surgical hardware in place. No gross marrow edema. No acute vertebral body compression fracture. Spinal Cord: Conus medullaris terminates at the L1 level. Visualized cord demonstrates normal signal and size. Paraspinous Soft Tissues: No paravertebral masses. T12-L1: Normal appearance. L1-L2: Normal appearance. L2-L3: Disc desiccation and mild diffuse disc bulge. Bilateral facet arthrosis is seen. There is mild bilateral neural foraminal narrowing. No significant central canal stenosis. L3-L4: Loss of disc height and disc desiccation is seen. Broad-based disc bulge and bilateral facet arthrosis with hypertrophy of ligamentum flavum causing moderate central canal stenosis, severe left-sided neural foraminal narrowing and moderate right-sided neural foraminal narrowing. Bulging disc likely contacting left L3 nerve root. L4-L5: Disc desiccation and loss of disc height is seen. There is broad-based disc bulge and bilateral facet arthrosis with hypertrophy of ligamentum flavum causing moderate central canal stenosis, moderate to severe left-sided neural foraminal narrowing and moderate right-sided neural foraminal narrowing. Bulging disc likely contacting bilateral L4 nerve roots. L5-S1: Postsurgical changes are seen. Bilateral facet arthrosis is noted. No significant central canal stenosis. [id number] left-sided neural foraminal narrowing is seen. IMPRESSION: 1. Post fusion changes at L5-S1 level. Grade 1 anterolisthesis of L3 on L4 and L4 on L5. No marrow edema. No acute vertebral body compression fracture. 2. Multilevel spondylitic changes in lumbar spine as described in detail above. 3. No gross paraspinous soft tissue abnormalities. Dictated by: Obey Simon M.D. on 10/10/2024 at 14:07 Approved by: Obey Simon M.D. on 10/10/2024 at 14:12
== END ==
LOC: MRI 10:47
PROVIDERS: PCP Family Medicine; Referring Provider Family Medicine; Visit Provider Family Medicine
DX: M43.16 Spondylolisthesis, lumbar region (principal); M47.816 Spondylosis without myelopathy or radiculopathy, lumbar region; M47.817 Spondylosis without myelopathy or radiculopathy, lumbosacral region; M54.9 Dorsalgia, unspecified; Z98.1 Arthrodesis status
CPT/HCPCS: 72148